=== PATIENT | male | born 1990 | race Caucasian/White ===

== ENCOUNTER 2018-05-10 17:23 | Emergency (ER) | payer MEDICAID, OTHER ==
[2018-05-10] MEDS: SOD CHLORIDE 0.9% 1,000 ML IV ×2 (17:56→19:37)
[2018-05-10] MEDS: LORAZEPAM 2 MG INJ IV (19:37)
[2018-05-11] MEDS: MIDAZOLAM 1 MG/ML 2 ML INJ IM (01:33)
[2018-05-11] MEDS: HALOPERIDOL 5 MG INJ IM (01:34)
== END 2018-05-11 09:18 | disposition home or self-care (01) ==
LOC: E/R 05-11 09:18
DX: T43.624A Poisoning by amphetamines, undetermined, initial encounter (principal); R00.0 Tachycardia, unspecified; R40.2142 Coma scale, eyes open, spontaneous, at arrival to emergency department; R40.2252 Coma scale, best verbal response, oriented, at arrival to emergency department; R40.2362 Coma scale, best motor response, obeys commands, at arrival to emergency department
CPT/HCPCS: 36415; 93005; 96372; 96374; 99284-25